=== PATIENT | female | born 1965 | race Caucasian/White ===

== ENCOUNTER 2017-12-09 11:10 | Inpatient (IN) | payer OTHER ==
[2017-12-09] VITALS (7 sets, daily range): BP systolic 103–118; BP diastolic 52–73
[~2017-12-09] VITALS: Ht 160 cm; Wt 95.7 kg
[~2017-12-09 11:10] MED LIST: ADULT LOW DOSE81 MG PO; AMBIEN 10 MG TA10 MG PO; AMITRIPTYLINE H25 M2 PO; ASPIRIN EC81 M1 PO; BENADRYL25 MG PO; CALCIUM500 MG PO; CARISOPRODOL 3350 MG PO; CYMBALTA30 MG PO; FLAGYL500 MG PO; HYDROCODON-ACE1 EAC5; HYDROCODONE-AP1 EAC6; HYDROCODONE-APA1 TA1 PO; LEVAQUIN 500 M500 M2 PO; LIBRAX CAPSULE1 EACH; LIBRAX CAPSULE1 EACH PO; LIBRAX PO; LIPITOR10 MG PO; MEDROLDOSEPACK PO; MS CONTIN30 MG PO; NEURONTIN 300300 M1 PO; NORCO 10-325 T1 EACH PO; NORCO 5-325 TA1 EACH; OXYCODONE HCL 55 MG PO; PERCOCET 5-3251 EACH PO; PHENERGAN 25 MG25 M1 PO; RESVERATROL250 MG PO; SALINE NASAL M126 ML NASAL; TOPAMAX; TOPAMAX50 MG PO; TUMS PO; VITAMIN B-12500 MCG PO; VITAMIN D1000 UNI1 PO; XANAX; XANAX 0.5 MG0.5 MG PO; [UNRECOGNIZED DRUG - OTHER] VAG
[2017-12-09 11:38] LABS: HEMATOCRIT 35.7 % (37.0-47.0); HEMOGLOBIN 11.7 gm/dL (12.0-15.0); MCH 29.2 pg (26.0-34.0); MCHC 32.7 g/dL (28.0-37.0); MCV 89.2 fL (80.0-100.0); MPV 6.5 fl. (7.2-11.1); RBC 4.01 mil/uL (4.20-5.00); RDW-CV 13.9 % (10.5-14.5); WBC 6.6 thou/uL (4.0-11.0)
[2017-12-09 11:46] LABS: ANION GAP 5 mmol/L (7-16); BUN 8 mg/dL (7-18); CALCIUM 8.7 mg/dL (8.5-10.1); CHLORIDE 103 mmol/L (98-107); CO2 34 mmol/L (21-32); CREATININE 0.8 mg/dL (0.6-1.3); GLUCOSE 119 mg/dL (70-99); SODIUM 142 mmol/L (136-145)
[2017-12-09 11:53] LABS: ALBUMIN 3.2 g/dL (3.4-5.0); ALKALINE PHOSPHATASE 82 U/L (46-116); SGOT 27 U/L (15-37); SGPT 34 U/L (30-65); TOTAL BILIRUBIN 0.1 mg/dL (<0.1-1.0); TOTAL PROTEIN 7.1 g/dL (6.4-8.2); TROPONIN-I LEVEL <0.06 ng/mL (<0.06)
[2017-12-09 11:54] LABS: ALCOHOL < 10 mg/dL (<10); SALICYLATE < 2.8 mg/dL (2.8-20.0)
[2017-12-09 11:55] LABS: ACETAMINOPHEN < 2 ug/mL (10-30)
--- NOTE | 2017-12-09 11:56 | NUR ---
INITIALLY PATIENT DENIES TAKING ANY MEDICATION EXCEPT FOR IBUPROFEN TO EMS AND RNS X2. PER HOME MEDICATION RECONCILIATION HISTORY IN [facility], WENT THROUGH PATIENT'S MEDICATIONS. DENIES GABAPENTIN, ELAVIL AND LIBRIUM
[2017-12-09 12:09] LABS: BE 8.6 mmol/L (-2 to +3); HCO3 35.1 mmol/L (22.0-26.0); PO2 65.3 mmHg (75.0-100.0); pH 7.407 (7.340-7.450)
[2017-12-09 12:10] LABS: PCO2 57.1 mmHg (35.0-45.0)
[2017-12-09 12:24] LABS: URINE BILIRUBIN NEGATIVE (Negative); URINE BLOOD NEGATIVE (Negative); URINE CLARITY CLEAR; URINE COLOR YELLOW; URINE GLUCOSE-RANDOM NEGATIVE (Negative); URINE KETONES NEGATIVE (Negative); URINE LEUKOCYTES NEGATIVE (Negative); URINE NITRITE NEGATIVE (Negative); URINE PROTEIN NEGATIVE (Negative); URINE SPECIFIC GRAVITY >= 1.030 (1.005-1.030); URINE UROBILINOGEN 0.2 E.U./dl (0.2-1.0)
[2017-12-09 12:32] LABS: AMP/METHAMP Negative (Negative); BARBITURATES Negative (Negative); BENZODIAZEPINES POSITIVE (Negative); COCAINE Negative (Negative); METHADONE Negative (Negative); OPIATES POSITIVE (Negative); PCP Negative (Negative); THC Negative (Negative)
--- NOTE | 2017-12-09 14:24 | NUR ---
DISCUSSED W/ DR WOODS AT THIS TIME TO START NARCAN GTT AT 100ML/HR FROM PREMIXED BAG FROM PHARMACY. RECOMMENDATIONS ON WHAT TO START GTT AT CAME FROM DAYDAY IN PHARMACY.
--- NOTE | 2017-12-09 15:32 | NUR ---
PT ADMITTED TO ROOM 230 AT 1430 FOR UNINTENTIONAL OVERDOSE. PT NOTED TO HAVE DECREASED RESPIRATIONS AT MOMENTS OF DROWSINESS. ON NARCAN GTT PER ORDERS. CONTINOUS PULSE OX MONITORING AT THIS TIME. PT ON 2L/NC PRECAUTION. SATS WNL. PT ALERT AND ORIENTED, DROWSY AT TIMES. EDUCATION ON PLAN OF CARE, PAIN MANAGEMENT, DISEASE PROCESS GIVEN. PT REPORTS HX OF BEING GIVEN NARCAN BEFORE AND HAD QUESTIONS ABOUT LEAVING AMA AT THIS TIME D/T "IT MAKES ME CRAWL OUT OF MY SKIN". PT STRONGLY ENCOURAGED TO CONTINUE PLAN OF CARE AT HOSPITAL AND AGREES AT THIS TIME. TELE ST. NO OTHER CONCERNS AT THIS TIME. CLWR. WCTM.
--- NOTE | 2017-12-09 17:38 | NUR ---
PT SOMEWHAT PROGRESSING TOWARDS GOALS THIS SHIFT. VSS. CONTINUES ON CONTINUOUS PULSE OX MONITORING. TITRATING NARCAN INDICATED. PT IS TOLERATING WELL AT THIS TIME. AT BEDSIDE. NO OTHER CONCERNS AT THIS TIME. CLWR. WCTM.
[2017-12-10 00:15] VITALS: BP 109/65
[2017-12-10 04:18] VITALS: BP 128/81
--- NOTE | 2017-12-10 07:07 | NUR ---
ASSUMED CARE OF PT AT 1930, NURSING ASSESSMENT COMPLETED AT START OF SHIFT, NARCAN DRIP INFUSING AT STAR OF SHIFT AT 0.1 MG/HR. VSS. AT 2014, NARCAN IFUSING TURNED OFF. PT ON CONTINUOUS PULSE OX THIS SHIFT, PT O2 SAT ABOVE 92%. PT AAOX4, STATES SHE FEELS READY TO GO HOME. HOURLY ROUNDING COMPLETED, CALL LIGHT WITHIN REACH. NO FALLS THIS SHIFT.
[2017-12-10 08:19] VITALS: BP 137/86
[2017-12-10 11:29] VITALS: BP 125/69
--- NOTE | 2017-12-10 12:40 | EKG ---
[place] [address] ELECTROCARDIOGRAM REPORT Name: ONUR SURESH Room: [address] ADM IN .R.#: [id number] Admission: 12/09/17 Attend Phys: Martha Morales Discharge: Date of : 67 Report #: [id number] THIS REPORT FOR: //name// [facility] ED Test Date: 2017-12-09 Test Time: 11:23:37 Pat Name: ONUR SURESH Department: Room: [facility] Gender: F Rfid Engineer: Tiffany SENIOR : 1965 Requested By: Odalys Salmeron Order Number: [id number] MD: Micha Walker Measurements Intervals [place] Rate: 112 P: 49 NM: 149 QRS: 15 QRSD: 94 T: -30 QT: 358 QTc: 489 Interpretive Statements Sinus tachycardia Inferior infarct, age indeterminate No previous ECG available for comparison Electronically Signed On 12-10-2017 12:40:28 CDT by Micha Walker [email or web address] <ELECTRONICALLY SIGNED> By: Micha Walker MD, [facility] 12/10/17 1240 1123 112 Micha Walker MD, [facility] /EPI
[2017-12-10 14:58] VITALS: BP 125/69
--- NOTE | 2017-12-10 15:15 | NUR ---
ASSUMED CARE OF PT AROUND 0730 THIS AM. REFER TO ASSESSMENT. PT VOICES WANTS TO GO HOME TODAY. NOTED TO BE ALERT, AWAKE AND APPOPRIATE FOR DC AT TIME OF ASSESSMENT. NOTED AROUND 0930, PT LETHARGIC AND DIFFICULT TO STAY AWAKE DURING CONVERSATION. PT STATES SHE DID NOT TAKE ANY OWN MEDICATIONS. BELONGINGS WERE SEARCHED PREVIOUS DAY AND PT WAS NOT IN ANY POSSESSION OF HOME MEDICATIONS. AT THIS TIME, PT IS AWAKE, ALERT, AND ORIENTED. AMBULATED UNIT AND STEADY GAIT NOTED. PT DENIES TAKING ANY MEDICATIONS TODAY AND STATES SHE HAS NOT SLEPT WELL AND SHE IS JUST SO TIRED. PT APPEARS SAFE FOR DISCHARGE AT THIS TIME. AT BEDSIDE AND AGREES WITH PLAN OF CARE.
--- NOTE | 2017-12-10 15:17 | NUR ---
WALKED WITH PT IN [place] TO ASSESES FOR STEADYNESS. PT IS VERY STEADY WHEN AMBULATING. PT ABLE TO NAVIGATE HALLWAY WITH EASE. PT DENIES DIZZYNESS, OR SOA.
--- NOTE | 2017-12-10 15:44 | NUR ---
PT GIVEN DISCHARGE INSTRUCTIONS AND VERBALIZES UNDERSTANDING. STRESSED THE IMPORTANCE OF F/U WITH PCP IN NEXT COUPLE OF DAYS TO EVALUATE MEDICATION REGIMEN. PT VERBALIZES UNDERSTANDING AND COMPLIANCE. PT DISCHARGED WITH ALL BELONGINGS. PT AMBULATORY WITH NURSING STAFF AND . STEADY GAIT NOTED. PT DC'D PER PRIVATE VEHICLE WITH DRIVING. NO OTHER CONCERNS AT THIS TIME.
== END 2017-12-10 15:53 | disposition home or self-care (01) | DRG 918 ==
LOC: M.ERS 11:10 → M.TBA-ER 13:44 → M.2W 14:30
PROVIDERS: Personal Emergency Response Attendant; ADMIT Internal Medicine
DX: T40.2X1A Poisoning by other opioids, accidental (unintentional), initial encounter (principal); G43.909 Migraine, unspecified, not intractable, without status migrainosus; M79.7 Fibromyalgia; Y92.89 Other specified places as the place of occurrence of the external cause; Z90.49 Acquired absence of other specified parts of digestive tract; Z86.73 Personal history of transient ischemic attack (TIA), and cerebral infarction without residual deficits; Z79.899 Other long term (current) drug therapy; Z79.82 Long term (current) use of aspirin; Z90.710 Acquired absence of both cervix and uterus

== ENCOUNTER 2019-10-21 14:30 | Inpatient (IN) | payer MEDICAID ==
[~2019-10-21] VITALS: Ht 160 cm; Wt 95.3 kg
--- NOTE | ~2019-10-21 | EKG ---
[place] [address] ELECTROCARDIOGRAM REPORT Name: ONUR SURESH Room: [facility] ADM IN .R.#: [id number] Admission: 10/21/19 Attend Phys: Collins Forde Discharge: Date of : 67 Date of Service: 10/21/19 1559 Report #: [id number] THIS REPORT FOR: cc: Marisela Monahan MD, Diane S. MD Epiphany, Epiphany MD ~ THIS REPORT FOR: //name// [facility] ED Test Date: 2019-10-21 Test Time: 15:59:01 Pat Name: ONUR SURESH Department: Room: [facility] Gender: F Dry Press Operator: JILLIAN : 1965 Requested By: Tre Mccollum Order Number: [id number] MD: Measurements Intervals [place] Rate: 83 P: 39 IN: 138 QRS: 61 QRSD: 100 T: -14 QT: 418 QTc: 492 Interpretive Statements Sinus rhythm Borderline repolarization abnormality Borderline prolonged QT interval Compared to ECG 12/09/2017 11:23:37 Sinus tachycardia no longer present Myocardial infarct finding no longer present [email or web address] By: 1559 1559 Epiphany EpiphanyMD /VIDA
[2019-10-21 14:38] VITALS: BP 107/70
[2019-10-21 16:08] LABS: HEMATOCRIT 37.3 % (37.0-47.0); HEMOGLOBIN 12.4 gm/dL (12.0-15.0); MCHC 33.4 g/dL (28.0-37.0); MCV 89.9 fL (80.0-100.0); MPV 7.4 fl. (7.2-11.1); NUCLEATED RBCS 0 /100WBC; RBC 4.15 mil/uL (4.20-5.00); RDW-CV 13.9 % (10.5-14.5); WBC 21.2 thou/uL (4.0-11.0)
[2019-10-21 16:22] LABS: CALCIUM 8.3 mg/dL (8.5-10.1); CREATININE 0.8 mg/dL (0.6-1.3)
[2019-10-21 16:27] LABS: ALBUMIN 3.3 g/dL (3.4-5.0); TOTAL BILIRUBIN 0.2 mg/dL (<0.1-1.0); TOTAL PROTEIN 6.7 g/dL (6.4-8.2)
[2019-10-21 16:32] VITALS: BP 107/70
[2019-10-21 16:42] LABS: ABSOLUTE LYMPHOCYTES 1.9 thou/uL (0.8-5.3); ABSOLUTE MONOCYTES 0.4 thou/uL (0.0-1.2); ABSOLUTE NEUTROPHILS 18.9 thou/uL (1.6-8.1)
[2019-10-21 16:54] LABS: PLATELET COUNT* 291 thou/uL (150-400)
[2019-10-21 16:55] LABS: PLATELET ESTIMATE ADEQUATE
[2019-10-21 22:00] VITALS: BP 144/83
[2019-10-22] VITALS: BP 142/88
[2019-10-22] MEDS ORDERED: MS CONTIN 30 MG30 M1 PO (00:33)
[2019-10-22] MEDS ORDERED: AMBIEN5 MG PO (00:34)
[2019-10-22] MEDS ORDERED: XANAX 0.5 MG0.5 M1 PO (00:35)
[2019-10-22 00:56] LABS: HEMATOCRIT 34.9 % (37.0-47.0); HEMOGLOBIN 11.7 gm/dL (12.0-15.0); MCH 29.4 pg (26.0-34.0); MCHC 33.5 g/dL (28.0-37.0); MCV 87.8 fL (80.0-100.0); MPV 6.9 fl. (7.2-11.1); RBC 3.97 mil/uL (4.20-5.00); RDW-CV 14.2 % (10.5-14.5); WBC 14.4 thou/uL (4.0-11.0)
[2019-10-22 01:09] LABS: CALCIUM 7.7 mg/dL (8.5-10.1); CREATININE 0.8 mg/dL (0.6-1.3); MAGNESIUM 1.8 mg/dL (1.8-2.4); POTASSIUM 3.2 mmol/L (3.5-5.1); TOTAL BILIRUBIN 0.2 mg/dL (<0.1-1.0); TOTAL PROTEIN 6.9 g/dL (6.4-8.2)
[2019-10-22 03:53] VITALS: BP 114/54
--- NOTE | 2019-10-22 07:17 | OP ---
[address] [address] OPERATIVE REPORT Name: DEMETRICEONURHANIE Room: [address] IN .R.#: [id number] Admission: 10/21/19 Attend Phys: Collins Case, Discharge: Date of : 67 Report #: [id number] THIS REPORT FOR: //name// cc: Marisela Monahan MD, Diane S. MD ~ THIS REPORT FOR: //name// CC: Marisela Case DICTATED BY: Tc Villarreal DO DATE OF SERVICE: 10/21/2019 PREOPERATIVE DIAGNOSIS: Right open both bone forearm fracture with a periprosthetic radius fracture. POSTOPERATIVE DIAGNOSIS: Right grade 1 open both bone forearm fracture. PROCEDURE: Open reduction and internal fixation of open right radius and ulnar shaft fractures. SURGEON: Jairon Barlow DO ASSISTANTS: 1. Tc Villarreal DO 2. Silviano Sorto DO 3. Huang Cortez DO ANESTHESIA: LMA. ANTIBIOTICS: 2 grams Ancef IV received preoperatively. TOURNIQUET: 250 mmHg for 90 minutes. ESTIMATED BLOOD LOSS: 200 mL. COMPLICATIONS: None. CONDITION: The patient is stable to PACU. INDICATIONS: The patient is a pleasant 54-year-old female who had a fall today onto a right upper extremity. She had immediate pain to the right forearm. She presented to the Emergency Department and found to have a right both bone forearm fracture. Of note, she did have a previous both bone forearm fracture [address] [address] OPERATIVE REPORT Name: ONUR SURESH Room: [address] IN .R.#: [id number] Admission: 10/21/19 Attend Phys: Collins Case, Discharge: Date of : 67 Report #: [id number] many years ago that was treated operatively. She states she then had a hardware failure and the plate broke and she subsequently underwent removal of hardware and revision of hardware to both bone forearm fracture. She does still have a retained radial shaft plate. Radiographs were reviewed, which showed a midshaft fracture of the radius and ulna just proximal to the previous volar radial plate. Operative intervention was recommended for the patient. The risks, benefits, alternatives, complications were discussed and the patient wished to proceed. DESCRIPTION OF PROCEDURE: The patient was seen and examined in the preoperative holding area. The correct upper extremity was marked. Written consent was obtained for the procedure. The patient was transferred to the operating room and placed supine on the operating room table. She was given the benefit of general anesthesia. A well-padded tourniquet was placed to the right upper arm and the right upper extremity was placed on the hand table. Right upper extremity was then prepped and draped in the usual sterile fashion. Timeout was performed to verify the correct patient, procedure and operative extremity and all were in agreement. The right upper extremity was exsanguinated with an Esmarch and the tourniquet was inflated to 250 mmHg. Next the procedure began with the volar approach to the radius. This was taken through her previous incision. There was noted to be scarring through this incision. Dissection was carried down to the radial shaft. The previous radial shaft plate was then encountered. The screws were removed without difficulty and the plate was then removed. The fracture was directly reduced with 2 lobster claw fracture clamps. A plate was then clamped into position and fluoroscopic images were obtained to verify the correct position of the plate. The plate was then drilled and appropriate length screws were inserted proximally and distally to the fracture site. This was inserted in a compression technique. After insertion of the plate, fluoroscopy was used to verify maintenance of the reduction as well as proper positioning of the plate with no signs of complication. Attention was then turned to the ulna. The incision was made directly through the previous incision. Sharp dissection was carried down to the ulna and the fracture site was identified. The fracture was reduced and pinned into position with a K-wire. Fluoroscopy was used to verify the positioning of the plate. The plate was then fixated proximally and distally. A 3.5 lag screw was then inserted across the fracture site. Upon insertion of the plate, final fluoroscopic images were obtained, which demonstrated appropriate reduction of the radial and ulnar shaft fractures with no signs of complication. The open wound was irrigated with 3 liters of normal saline. Tourniquet was deflated and hemostasis was achieved with electrocautery. Next, the incisions were closed with 2-0 Monocryl in a simple interrupted inverted fashion followed by running 3-0 nylon on the skin. A soft dressing was applied to the right upper extremity. The patient was then awakened from anesthesia and transferred to the PACU in stable condition. The patient tolerated the procedure well. [place] [address] OPERATIVE REPORT Name: ONUR SURESH Room: [address] IN .R.#: [id number] Admission: 10/21/19 Attend Phys: Collins Case, Discharge: Date of : 67 Report #: [id number] POSTOPERATIVE PLAN: The patient will be admitted to the floor. She will continue IV antibiotics for 24 hours postoperatively. She will be nonweightbearing to the right upper extremity. <ELECTRONICALLY SIGNED> By: Yariel Vaughn DO 10/22/19 0717 30 [id number] Barlow DO /nt
[2019-10-22 08:05] VITALS: BP 120/61
[2019-10-22 15:18] LABS: CALCIUM 8.1 mg/dL (8.5-10.1); CREATININE 0.7 mg/dL (0.6-1.3); MAGNESIUM 2.1 mg/dL (1.8-2.4)
[2019-10-22 15:32] LABS: POTASSIUM 2.9 mmol/L (3.5-5.1)
[2019-10-22 18:00] VITALS: BP 116/68
[2019-10-22 19:35] VITALS: BP 137/80
[2019-10-23] VITALS: BP 147/82
[2019-10-23 05:55] LABS: CALCIUM 8.1 mg/dL (8.5-10.1); CREATININE 0.8 mg/dL (0.6-1.3); POTASSIUM 3.6 mmol/L (3.5-5.1)
[2019-10-23 07:55] VITALS: BP 133/68
[2019-10-23 15:39] VITALS: BP 133/68
[2019-10-23] MEDS ORDERED: NORCO 5-325 TA1 EAC1 PO (15:51)
[2019-10-23 16:00] VITALS: BP 146/95
== END 2019-10-23 18:27 | disposition home or self-care (01) | DRG 512 ==
LOC: M.ERS 14:30 → M.ORTHSURG 15:48 → M.TBA-ER 15:48 → M.ORTHSURG 21:31
PROVIDERS: Emergency Medicine Emergency Medical Services; ADMIT Family Medicine
PROC: 0PSK06Z Reposition Right Ulna with Intramedullary Internal Fixation Device, Open Approach (ICD-10-PCS; principal; 2019-10-21)
PROC: 0PSH06Z Reposition Right Radius with Intramedullary Internal Fixation Device, Open Approach (ICD-10-PCS; principal; 2019-10-21)
DX: S52.91XB Unspecified fracture of right forearm, initial encounter for open fracture type I or II (principal); G43.909 Migraine, unspecified, not intractable, without status migrainosus; F17.210 Nicotine dependence, cigarettes, uncomplicated; E66.01 Morbid (severe) obesity due to excess calories; G89.4 Chronic pain syndrome; E87.6 Hypokalemia; Z86.73 Personal history of transient ischemic attack (TIA), and cerebral infarction without residual deficits; Z82.49 Family history of ischemic heart disease and other diseases of the circulatory system; Z68.37 Body mass index [BMI] 37.0-37.9, adult; Z79.899 Other long term (current) drug therapy

== ENCOUNTER → 2020-08-06 | Outpatient (CLI) | payer MEDICAID ==
[~2020-08-06] MED LIST changes: +AMBIEN5 MG PO; +MS CONTIN 30 MG30 M1 PO; +NORCO 5-325 TA1 EAC1 PO; +XANAX 0.5 MG0.5 M1 PO
== END ==
LOC: M.RAD 11-04 08:25 → M.ULTRA 11-21 10:40 → M.RAD 14:24
PROVIDERS: ATTEND Internal Medicine
DX: N63.20 Unspecified lump in the left breast, unspecified quadrant (principal); R92.8 Other abnormal and inconclusive findings on diagnostic imaging of breast

== ENCOUNTER → 2020-12-16 | Outpatient (CLI) | payer MEDICAID | LOC: M.LAB 08:00 | PROVIDERS: ATTEND Orthopaedic Surgery | DX: Z01.812 Encounter for preprocedural laboratory examination (principal); Z20.822 Contact with and (suspected) exposure to COVID-19 ==

== ENCOUNTER → 2021-09-15 | Day surgery (SDC) | payer MEDICAID ==
[~2021-09-15] MED LIST changes: +BENTYL 10 MG CA10 M1 PO; +CYANOCOBAL1000 MCG/1 IM; +NEURONTIN 300M300 M2 PO; +NORCO5 PO; +PROTONIX40 M4 PO
--- NOTE | ~2021-09-15 | OP ---
[facility] [address] [place] [address] OPERATIVE REPORT Name: ONUR SURESH Room: [facility]#: [id number] Admission: 09/15/21 Attend Phys: Otf Delong Discharge: Date of : 67 Report #: [id number] THIS REPORT FOR: cc: Marisela Monahan MD, Diane S. MD Patterson, Jonathan D. MD ~ DATE OF SURGERY: 09/15/2021 PREOPERATIVE DIAGNOSIS: Left inguinal hernia. POSTOPERATIVE DIAGNOSIS: Left inguinal hernia. OPERATION: Laparoscopic repair of left inguinal hernia with mesh. SURGEON: Otf Delong MD ANESTHESIA: General. ESTIMATED BLOOD LOSS: Minimal. SPECIMENS: None. DESCRIPTION OF PROCEDURE: After informed consent was obtained, the patient was brought to the operating room and placed supine. SCDs were placed and working, preoperative antibiotics were administered, general anesthesia was induced. The abdomen was prepped and draped in the usual sterile fashion. A 5 mm incision was made in the left upper quadrant. A 5 mm trocar was placed under direct vision. Pneumoperitoneum was established. Left-sided 5 mm trocar was placed under direct vision. She had adhesions of the omentum up to the abdominal wall from previous surgery. This was taken down sharply using cautery and the LigaSure device. There was excellent hemostasis. I was then able to place a 10 mm trocar in the midline above the umbilicus as well as a right lower quadrant 5 mm trocar. The patient was then placed in the Trendelenburg position. I examined the left side. The peritoneum at the left ASIS was scored. It was incised medially and reflected inferiorly. The pubic bone was identified. She had an indirect hernia. This was fully reduced. I then inserted a medium Bard 3DMax mesh. It was tacked to Aristides's ligament with 2 absorbable tacks. I then reapproximated the peritoneum over this mesh using a running V-Loc suture. There was 100% coverage of the mesh. The area was instilled with 10 mL of 0.5% Marcaine. I examined the right side. There was no evidence of a hernia on that side. The ports were then removed under direct vision. Fascia at the umbilicus was closed with a [id number] 0 Vicryl. Skin was closed with 4-[place] [address] OPERATIVE REPORT Name: ONUR SURESH Room: [facility]#: [id number] Admission: 09/15/21 Attend Phys: Otf Delong Discharge: Date of : 67 Report #: [id number] Incisions were dressed with Steri-Strips. COMPLICATIONS: None. DISPOSITION: The patient was taken to recovery in satisfactory condition. By: [id number] Delong MD /douglas
[2021-09-15 08:52] LABS: HEMOGLOBIN 14.1 gm/dL (12.0-15.0); MCH 30.7 pg (26.0-34.0); MCHC 32.8 g/dL (28.0-37.0); MCV 93.6 fL (80.0-100.0); MPV 6.3 fl. (7.2-11.1); RBC 4.59 mil/uL (4.20-5.00); WBC 11.3 thou/uL (4.0-11.0)
[2021-09-15 09:01] LABS: CREATININE 0.9 mg/dL (0.6-1.3); POTASSIUM 3.1 mmol/L (3.5-5.1)
--- NOTE | 2021-09-15 10:56 | EKG ---
[place] [address] ELECTROCARDIOGRAM REPORT Name: ONUR SURESH Room: [facility]#: [id number] Admission: 09/15/21 Attend Phys: Otf Wyman Discharge: Date of : 67 Date of Service: 09/15/21 0839 Report #: [id number] THIS REPORT FOR: //name// [facility] Test Date: 2021-09-15 Test Time: 08:39:08 Pat Name: ONUR SURESH Department: Room: Gender: Kindergarten Tutor: NICOLAS BENSON : 1965 Requested By: Otf Delong Order Number: [id number] Shannan MD: Chan Harkins Measurements Intervals [place] Rate: 74 P: 61 GA: 158 QRS: 16 QRSD: 102 T: 19 QT: 422 QTc: 469 Interpretive Statements Sinus rhythm Compared to ECG 10/21/2019 15:59:01 No significant changes Electronically Signed On 09-15-2021 10:56:29 FINANCIAL PLANNING CONSULTANT by Chan Harkins [email or web address] <ELECTRONICALLY SIGNED> By: Chan Harkins MD, [facility] 09/15/21 1056 0839 0839 Chan Harkins MD, [facility] /EPI
== END | disposition home or self-care (01) ==
LOC: M.SUR 07:59
PROVIDERS: ATTEND Surgery
DX: K40.90 Unilateral inguinal hernia, without obstruction or gangrene, not specified as recurrent (principal); R10.30 Lower abdominal pain, unspecified; G43.909 Migraine, unspecified, not intractable, without status migrainosus; M79.7 Fibromyalgia; Z98.890 Other specified postprocedural states; Z79.899 Other long term (current) drug therapy; Z20.822 Contact with and (suspected) exposure to COVID-19; Z98.51 Tubal ligation status; Z86.73 Personal history of transient ischemic attack (TIA), and cerebral infarction without residual deficits; Z90.710 Acquired absence of both cervix and uterus; Z90.49 Acquired absence of other specified parts of digestive tract